=== PATIENT | female | born 1940 | race Caucasian/White ===

== ENCOUNTER 2020-10-14 11:56 | Outpatient (CLI) | payer MEDICARE, SELFPAY ==
--- NOTE | 2020-10-14 12:06 | USCV_ITS ---
Ashleigh Hull Age: 80 Gender: F : 1940 Exam Date: 10/14/2020 13:01 Ordering Phys: Lorena Avila MD Technologist: Milka Sharma Exam Location: [facility] – [place] Indication: Had Covid in Aug and now hypertensive and sob BP: 127 / 70 HR: 73 Rhythm: Sinus Technical Quality: Adequate MEASUREMENTS (Male / Female) Normal Values 2D ECHO LV Diastolic Diameter PLAX 3.6 cm 4.2 - 5.9 / 3.9 - 5.3 cm LV Systolic Diameter PLAX 3.0 cm LV Chamber Size 3.3 cm IVS Diastolic Thickness 1.4 cm 0.6 - 1.0 / 0.6 - 0.9 cm IVS Systolic Thickness 1.6 cm LVPW Diastolic Thickness 1.2 cm 0.6 - 1.0 / 0.6 - 0.9 cm LVPW Systolic Thickness 1.6 cm RV Chamber Size 2.9 cm LVOT Diameter 2.0 cm LV Ejection Fraction 2D Teich 34.0 % LV Ejection Fraction MOD 2C 65.7 % LV Ejection Fraction 2C AL 66.3 % LA Diameter 2.7 cm LA Width 2.9 cm LA Height 2.8 cm RA Width 2.4 cm RA Height 3.6 cm Aorta at Sinotubular Diameter 3.1 cm M-MODE LV Diastolic Diameter MM 3.9 cm 4.2 - 5.9 / 3.9 - 5.3 cm LV Systolic Diameter MM 2.1 cm LV Ejection Fraction MM Teich 77.2 % IVS Diastolic Thickness MM 1.1 cm 0.6 - 1.0 / 0.6 - 0.9 cm IVS Systolic Thickness MM 1.4 cm LVPW Diastolic Thickness MM 1.3 cm 0.6 - 1.0 / 0.6 - 0.9 cm LVPW Systolic Thickness MM 1.9 cm RV Diastolic Diameter MM 1.4 cm Aortic Annulus Diameter 3.3 cm LA Ao Ratio MM 1.1 MV E Point Septal Separation 0.7 cm DOPPLER AV Peak Velocity 184.0 cm/s LVOT Peak Velocity 97.0 cm/s AV Area Cont Eq vti 2.3 cm squared AV Area Cont Eq pk 1.7 cm squared MV Area PHT 5.0 cm squared Mitral E to A Ratio 0.7 MV E' Velocity 44.0 cm/s Mitral E to MV E' Ratio 8.8 Mitral E to LV E' Lateral Ratio 8.2 Mitral E to LV E' Septal Ratio 9.5 TR Peak Velocity 175.7 cm/s TR Peak Gradient 12.4 mmHg TR Mean Velocity 130.6 cm/s TR Mean Gradient 7.5 mmHg TR Velocity Time Integral 42.8 cm TV Peak E Velocity 58.0 cm/s Right Atrial Pressure 3.0 mmHg Pulmonary Artery Systolic Pressu 15.4 mmHg PV Peak Velocity 117.0 cm/s RV Acceleration Time 0.1 s RV Ejection Time 0.3 s RV AcT/ET 0.4 FINDINGS Left Ventricle Normal left ventricular cavity size. Normal left ventricular systolic function. No regional wall motion abnormalities. Left ventricular ejection fraction is estimated at 65 %. Grade I/IV diastolic dysfunction (abnormal relaxation filling pattern), normal to mildly elevated filling pressures. Right Ventricle The right ventricle is normal in size and function. Right Atrium The right atrium is normal in size. Left Atrium The left atrium is normal in size. Mitral Valve Structurally normal mitral valve without significant stenosis or prolapse. There is no mitral regurgitation. Aortic Valve Structurally normal aortic valve without significant sclerosis or stenosis. There is no aortic regurgitation. Tricuspid Valve Structurally normal tricuspid valve without significant stenosis or regurgitation. Pulmonary artery systolic pressure is normal. Pulmonic Valve Structurally normal pulmonic valve without significant stenosis. There is no pulmonic regurgitation. Pericardium Normal pericardium without effusion. Aorta Normal ascending aorta dimension. CONCLUSIONS 1-Normal left ventricular cavity size. Normal left ventricular systolic function. No regional wall motion abnormalities. Left ventricular ejection fraction is estimated at 65 %. Grade I/IV diastolic dysfunction (abnormal relaxation filling pattern), normal to mildly elevated filling pressures. 2-There is no pericardial effusion. 3-No significant valve abnormalities. 4-Pulmonary artery systolic pressure is within normal limits. 5-Right atrial pressure is around 5 mm of mercury. 6-There are no prior echocardiogram studies to compare. Gill Jefferson MD (Electronically Signed) Final Date: 14 October 2020 20:14 S
--- NOTE | 2020-10-14 12:06 | XR_ITS ---
WS: [id number] CHEST 2 VIEWS HISTORY: COPD/COVID19 INFECTION/HYPERTENSION/HYPOXEMIA COMPARISON: 02/24/2017 Lungs: Moderate pulmonary hyperinflation with emphysema. No pneumonia. No pleural effusion. Flattenin g of the diaphragms. Cardiac size: Normal. Mediastinum/Aorta: Mild atherosclerosis aorta. Bones: Moderate increase in thoracic kyphosis. Osteopenia. XR/XR chest 2V* [id number] IMPRESSION: 1. Chronic emphysema with no pneumonia. 2. Mild atherosclerosis aorta.
== END 2020-10-14 11:57 | disposition home or self-care (01) ==
PROVIDERS: PCP Internal Medicine; Visit Provider Internal Medicine
DX: U07.1 COVID-19 (principal); I10 Essential (primary) hypertension; R09.02 Hypoxemia; J44.9 Chronic obstructive pulmonary disease, unspecified; R06.02 Shortness of breath; I70.0 Atherosclerosis of aorta
CPT/HCPCS: 71046; 93306

== ENCOUNTER 2020-10-25 08:31 | Outpatient (CLI) | payer MEDICARE, SELFPAY ==
--- NOTE | 2020-10-25 09:44 | CT_ITS ---
WS: [id number] CT scan of the abdomen with Oral contrast. Additional two-dimensional coronal and sagittal reconstru ction was performed. 10/25/2020 Clinical Data: HERNIA, ABDOMINAL PAIN Comparison: CT abdomen and pelvis, 12/31/2017. DLP: 581.[address] scans at [facility] use at least one of these dose optimization techniques: automat ed exposure control; mA and/or kV adjustment per patient size (includes targeted exams where dose is matched to clinical indication); or iterative reconstruction. Findings: The lower lungs show no nodules, masses or effusions. There is a small hiatal hernia. The gallbladder, spleen, adrenal glands and pancreas are normal. The liver shows 2 cysts in the rig ht and left lobes unchanged. The left kidney is absent. The right kidney shows no cysts, masses, hydronephrosis or calculi. The abdominal aorta shows calcification of the wall and atherosclerotic dilatation with the greatest diameter of 2.5 cm. There is an umbilical hernia containing only fat with the orifice measuring 1.31 cm.. No appendicitis is seen. Oral contrast is in the stomach and small bowel and there is no bowel dilata tion. No abscess, adenopathy, ascites, mass, obstruction or free air is seen. The lumbar vertebral bodies a re normal. CT/CT abdomen wo con [id number] Impression: 1. Absent left kidney. 2. 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 3. Small umbilical hernia containing fat.
[2020-10-25] MEDS: iohexol 300 mg/mL 50 mL Btl PO (10:03)
== END 2020-10-25 08:32 | disposition home or self-care (01) ==
LOC: RADWPI 08:36
PROVIDERS: PCP Internal Medicine; Visit Provider Nurse Practitioner Family
DX: K42.9 Umbilical hernia without obstruction or gangrene (principal); I70.0 Atherosclerosis of aorta; Z90.5 Acquired absence of kidney
CPT/HCPCS: 74150; Q9967

== ENCOUNTER 2020-11-21 05:50 | Day surgery (SDC) | payer MEDICARE, SELFPAY ==
[2020-11-19 13:41] VITALS: BMI 23.8
[2020-11-21 06:15] VITALS: BP 143/107; PULSE 90; RESP 22; TEMP 36.3; O2SAT 93
--- NOTE | 2020-11-21 06:19 | W.PM.OPSUD ---
Surgery/Procedure H&P Update DATE OF PROCEDURE: November 21, 2020 DATE H&P PERFORMED: 10/29/20 H&P UPDATE INFORMATION: I have examined patient prior to procedure and No changes to prior documentation PLANNED PROCEDURE: Operation Date: 11/21/20 07:00 Proposed Procedures p Incisional/Ventral Hernia Repair 50491 K43.9(Not Applicable) - Kiko Mckeon MD
[2020-11-21] MEDS: sodium chloride 0.9% 1,000 ML 30 ML IV (06:35)
[2020-11-21] MEDS: midazolam 1 mg/mL INJ 2 mL 2 MG IVP (06:36)
--- NOTE | 2020-11-21 06:43 | ANES.PREANE2 ---
Pre-Anesthetic Assessment Pre-Anesthetic Assessment: Height/Weight: Height 1.57 m Weight 58.967 kg Temp Pulse Resp BP Pulse Ox 97.4 F L 90 22 H 143/107 93 11/21/20 06:15 11/21/20 06:15 11/21/20 06:15 11/21/20 06:15 11/21/20 06:15 Proposed Procedure: Operation Date: 11/21/20 07:00 Proposed Procedures p Incisional/Ventral Hernia Repair 95897 K43.9(Not Applicable) - Kiko Mckeon MD Was Beta Nolan taken within 24 hours: N/A Last intake: Intake Last Liquid Date 11/20/20 Last Liquid Time 20:00 Last Solid Date 11/20/20 Last Solid Time 17:30 Social: Social History: Tobacco and No alcohol Comment: Long h/o smoking, quit some years ago Exam: Pre-Anes Outpt Exam: alert, oriented x 3 and regular rate & rhythm Additional Exam Findings (including area of procedure): Decreased BS Airway: Submandibular: WNL Cervical ROM: WNL MP: 2 Dentition: False Pulmonary: Pulmonary: COPD Comments: Home O2 CV/HEM: CV/HEM: HTN : : None reported Hepatic: Hepatic: None reported GI: GI: None reported Metabolic: Metabolic: None reported Musc/skel: Musc/skel: None reported Neuropsych: Neuropsych: None reported Anesthetic Plan: ASA status: 3 Anesthesia: MAC Risk of > 500 ml blood loss (7ml/kg in children): No Meds/Allergies Current Medications: Current Medications Generic Name Dose Route Start Last Admin Trade Name Freq PRN Reason Stop Dose Admin Sodium Chloride 1,000 mls @ 30 ml s/hr 11/21/20 06:15 11/21/20 06:35 Sodium Chloride 0.9% IV 11/22/20 06:14 30 mls/hr .Q24H BOB Administration Midazolam HCl 2 mg 11/21/20 06:05 11/21/20 06:36 Midazolam 1 Mg/M l Inj 2 Ml IVP 2 mg Q5M PRN Administration Preop Anxiety PFSH Anesthesia PFSH: Medical History (Updated 11/11/20 @ 09:12 by Kenia Jones MD) COPD (chronic obstructive pulmonary disease) Hiatal hernia HTN (hypertension) Hyperlipidemia Surgical History (Updated 11/11/20 @ 09:08 by Kenia Jones MD) H/O kidney removal Family History Brother Cancer Father Heart attack Mother Lung disease Sister Cancer Social History Smoking and tobacco status: former smoker Quit status (tobacco): has quit using tobacco Year quit tobacco: 1995 -2PPD x 30 Years Second hand smoke exposure: No Smoking risk assessment/counseling performed?: No Alcohol intake: never Desire information about alcohol rehabilitation?: No Counseling given: No Desire information about substance/drug rehabilitation?: No Counseling given: No Lives independently: Yes Household members: none Marital status: / Current occupational status: retired History of recent travel: No Current gender identity: Female Data Anesthesia Cardiac Studies: No Data to Display
--- NOTE | 2020-11-21 07:20 | P.OP_ITS ---
Operative Report Date of procedure: November 21, 2020 Pre-op Diagnosis: Ventral hernia. Post-op diagnosis: same Procedure Done: Repair of ventral hernia. Pathology: none sent Surgeon: Kiko Mckeon Anesthesia: MAC Estimated blood loss (mL): 2 Complications: None. Condition: stable Disposition: same day Procedure: The patient was brought to the operating room and was placed in a supine position on the operating room table. A monitored anesthetic was induced. The abdomen was prepped and draped in a sterile fashion. A combination of 2% lidocaine with 1 to 100,000 parts epinephrine and 0.5% bupiv acaine was used for local anesthesia throughout the procedure. A vertical incision was carried out in the low epigastrium just above the vertical scar above the patient's umbilicus. Cautery was used to divide the subcutaneous tissue down to the fascia and the hernia sac was identified and was freed from the surrounding subcutaneous tissue using cautery. The patient had a hernia defect measuring approximately 1.5 cm in diameter. The sac was reduced and the defect was closed transversely using multiple interrupted sutures of 0 Prolene. The repair was buttressed in between the Prolene sutures with a [id number] suture of 0 Vicryl. The wound was irrigated with saline. The subcutaneous tissue was brought together with a simple suture of 3-0 Vicryl and the skin was approximated using a running subcuticular suture of 3-0 Vicryl. Benzoin and Steri-Strips were placed over the incision and a sterile bandage followed. The patient was taken to the outpatient recovery area in stable co ndition postoperatively.
[2020-11-21 07:25] VITALS: BP 126/74; PULSE 78; RESP 16; TEMP 36.2; O2SAT 98
[2020-11-21 07:40] VITALS: BP 152/74; PULSE 70; RESP 18; TEMP 36.4; O2SAT 2
--- NOTE | 2020-11-21 07:51 | ANE.PACU2 ---
Inpatient post-anesthesia follow up: Airway intact: Yes Vital signs: Temperature 97.1 F Pulse Rate 78 Respiratory Rate 16 Blood Pressure 126/74 Pulse Oximetry 98 Oxygen Delivery Me thod Nasal Cannula Oxygen Flow Rate 3 Fraction of Inspir ed Oxygen Hydration adequate: Yes Nausea and vomiting: No Pain level: 1 Mental status: Baseline
== END 2020-11-21 08:31 | disposition home or self-care (01) ==
PROVIDERS: PCP Internal Medicine; Visit Provider Surgery
PROC: (CPT 49560; principal; 2020-11-21 07:00)
DX: K43.9 Ventral hernia without obstruction or gangrene (principal); Z99.81 Dependence on supplemental oxygen; I10 Essential (primary) hypertension; J43.9 Emphysema, unspecified; E78.00 Pure hypercholesterolemia, unspecified
CPT/HCPCS: 49560; 12345; 96374; J0690; J2250; J2704; J3010; J3490; J7030

== ENCOUNTER 2021-01-15 10:25 | Outpatient (CLI) | payer MEDICARE, SELFPAY ==
--- NOTE | 2021-01-15 10:32 | CT_ITS ---
WS: [id number] CT CHEST WITHOUT INTRAVENOUS CONTRAST HISTORY: Pulmonary nodule TECHNIQUE: Contiguous 5 mm axial imaging performed on the thorax. Coronal and sagittal reformats are submitted. All CT scans at [facility] use at least one of these dose optimization techniq ues: automated exposure control; mA and/or kV adjustment per patient size (includes targeted exams wh ere dose is matched to clinical indication); or iterative reconstruction. CONTRAST: None DLP: 510.81 mGycm COMPARISON: 04/12/2019 Lungs and central airway: Moderate to severe pulmonary hyperexpansion from emphysema. Stable 3 mm ovoid nodule along the RIGHT minor fissure. The remaining previously described micronodul es are not evident. These could be obscured by small amount of motion artifact or due to their small size not visualized from to slice selection. There are no enlarging or suspicious masses. No pneumoni a. Pleura: Normal. No pleural effusion. Heart and pericardium: Normal size heart with no pericardial effusion. Mediastinum and cristofer: No mediastinum or hilar adenopathy. Vessels: Moderate atherosclerosis thoracic aorta. No aneurysm. Plaque extends into the proximal great vessels. Pulmonary artery size is equal to the aorta. Chest wall and lower neck: Bilateral thyroid nodules are unchanged. Upper abdomen: Suprarenal mild dilatation of the aorta. Maximum diameter is 2.6 cm. Low-attenuation m asses within the liver with the largest measuring 2.0 cm on the RIGHT are probably cysts. These are s table. No adrenal mass. Prior LEFT nephrectomy or congenital absent kidney. Osseous structures: Moderate increase in the thoracic kyphosis. No fractures. CT/CT chest wo con [id number] IMPRESSION: 1. No suspicious, enlarging or new pulmonary nodules since 04/12/2019. Majority of the previously described nodules are not evident today and have either reso lved or not imaged due to slice selection. 2. Moderate atherosclerosis thoracic aorta and suprarenal aorta. 3. 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 4. Stable hepatic cysts. 5. Moderately severe chronic emphysema.
== END 2021-01-15 10:26 | disposition home or self-care (01) ==
PROVIDERS: PCP Internal Medicine; Visit Provider Internal Medicine Critical Care Medicine
DX: R91.1 Solitary pulmonary nodule (principal); J43.9 Emphysema, unspecified; K76.89 Other specified diseases of liver; I70.0 Atherosclerosis of aorta
CPT/HCPCS: 71250

== ENCOUNTER 2022-04-07 09:59 | Outpatient (CLI) | payer MEDICARE, SELFPAY ==
--- NOTE | 2022-04-07 10:25 | XRR_ITS ---
PROCEDURE INFORMATION: Exam: XR Lumbosacral Spine Exam date and time: 04/07/2022 10:28 AM Age: 81 years old Clinical indication: Patient HX: Low back pain for 3 -4 weeks, no known trauma; Additional info: Acute back pain TECHNIQUE: Imaging protocol: XR of the lumbosacral spine. Views: 4 or 5 views. Total images: 3 COMPARISON: CT abdomen pelvis w con* [id number] 12/31/2017 3:12 PM FINDINGS: Bones/joints: Diffuse osteopenia noted. Vertebral body heights are maintained. No evidence of spondylolysis nor spondylolisthesis. No acute fracture nor subluxation. No osseous erosion nor periosteal reaction. Soft tissues: Unremarkable. Vasculature: Incidental phleboliths noted. Atherosclerosis is evident. 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 Follow-up imaging in 5 years is recommended. XR/XR lumbar spine min 4V [id number] IMPRESSION: 1. 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 Follow-up imaging in 5 years is recommended. 2. No acute osseous pathology. 3. No acute process identified.
== END 2022-04-07 10:00 | disposition home or self-care (01) ==
PROVIDERS: PCP Internal Medicine; Visit Provider Internal Medicine
DX: I77.811 Abdominal aortic ectasia (principal); M54.9 Dorsalgia, unspecified
CPT/HCPCS: 72110

== ENCOUNTER 2022-09-21 14:11 | Outpatient (CLI) | payer MEDICARE, SELFPAY ==
[2022-09-21 15:48] LABS: Alanine Aminotransferase 32 U/L (0-33); Albumin Level 3.4 g/dL (3.5-5.2); Alkaline Phosphatase 76 U/L (35-105); Anion Gap 14.2 (5-19); Aspartate Amino Transferase 23 U/L (0-32); Blood Urea Nitrogen 15 mg/dL (8-23); Calcium 10.1 mg/dL (8.5-10.5); Carbon Dioxide 32 mmol/L (22-29); Chloride 95 mmol/L (98-107); Glucose 108 mg/dL (65-115); Osmolality Calculated 285 mOsm/kg (285-295); Potassium 4.2 mmol/L (3.5-5.1); Sodium 137 mmol/L (136-145); Total Bilirubin 0.3 mg/dL (0.15-1.2); Total Protein 5.4 g/dL (6.6-8.7)
[2022-09-21 16:13] LABS: Hematocrit 34.1 % (37.0-47.0); Hemoglobin 11.6 g/dL (11.5-15.3); Red Blood Count 3.31 10^6/uL (4.1-5.3); Red Cell Distribution Width 15.4 % (12.1-15.1); White Blood Count 11.5 10^3/uL (4.0-10.0)
[2022-09-21 16:14] LABS: Lymphocytes # 0.5 10^3/uL (0.8-4.8); Lymphocytes % 4.4 %; Mean Platelet Volume 9.1 fL (7.4-10.4); Monocytes # 0.9 10^3/uL (0.2-0.9); Monocytes % 8.2 %; Platelet Count 236 10^3/cmm (130-400); Slide Review Slide Review Perform
[2022-09-21 16:18] LABS: Neutrophils # 9.36 10^3/uL (1.8-7.7)
[2022-09-21 16:19] LABS: Eosinophils % 0.1 %; Neutrophils % 81.2 %
== END 2022-09-21 14:12 | disposition home or self-care (01) ==
PROVIDERS: PCP Internal Medicine; Visit Provider Internal Medicine
DX: I10 Essential (primary) hypertension (principal)
CPT/HCPCS: 80053; 85025

== ENCOUNTER 2022-09-22 14:28 | Outpatient (CLI) | payer MEDICARE, SELFPAY ==
--- NOTE | 2022-09-22 14:36 | CT_ITS ---
WS: [id number] CT ABDOMEN PELVIS TECHNIQUE: Contrast-enhanced CT of the abdomen and pelvis with coronal and sagittal reformatted image s. CLINICAL INFORMATION: ADENOCARCINOMA OF ENDOMETRIUM COMPARISON: CT October 25, 2020 and 2 DLP: 898.[address] scans at [facility] use at least one of these dose optimization techniques: automated e xposure control; mA and/or kV adjustment per patient size (includes targeted exams where dose is matc hed to clinical indication); or iterative reconstruction. FINDINGS: Numerous hepatic cysts are unchanged. Largest RIGHT hepatic lobe measuring 2.2 cm. Normal splenic enh ancement. Normal GE junction. Lung bases are well aerated. Normal pancreatic parenchymal enhancement. Normal portal vein and splenic vein. Adrenal glands are normal. LEFT nephrectomy. Normal RIGHT renal parenchymal enhancement. RIGHT double-J ureteral stents. Moderate aortic calcification. Celiac and SMA are patent. Moderate stenosis at the SMA origin. Aneury smal infrarenal abdominal aorta measuring 2.79 x 2.7 cm AP by transverse. Diffuse body wall anasarca. RIGHT ventral abdominal wall hernia with herniation of transverse colon. Wide mouth hernia. No strangulation. Hernia mouth measures 3.7 x 4.3 CM. Small amount of adjacent flu id.No abdominal or pelvic lymphadenopathy. Small amount of free fluid in the pelvis. Nonspecific smal l peripherally enhancing fluid collection along the LEFT iliac crest anteriorly measuring 2.4 x3.2 CM . Associated diffuse body wall anasarca. Fat-containing umbilical hernia with a small amount of fluid . Sclerotic lesions L5 and L3 vertebral bodies are new compared to 2020. These are nonspecific and susp icious for metastatic disease. Additional partially visualized tiny sclerotic lesion T10. Recommend f urther evaluation with bone scan and/or PET CT. CT/CT abdomen pelvis w con* [id number] IMPRESSION: 1. Sclerotic lesions in the L3 and L5 vertebral bodies nonspecific but metasta tic disease not excluded. Largest at L3 eccentric to the RIGHT measuring 17 mm. Recommend further evaluation with bone scan and/or PET CT. 2. Prior hysterectomy. Small amount of free fluid in the pelvis. 3. Prior LEFT nephrectomy. 4. RIGHT double-J ureteral stent. No hydronephrosis. 5. [place] RIGHT ventral abdominal wall hernia measuring 3.7 x 4.3 cm is new from previous. Herniated loop of transverse colon with a small amount of adjac ent fluid. No evidence of strangulation. 6. Diffuse body wall anasarca.Nonspecific small peripherally enhancing fluid c ollection along the LEFT iliac crest anteriorly measuring 2.4 x3.2 CM. 7. Stable hepatic cysts. 8. Small aneurysmal infrarenal abdominal aorta measuring 2.7 x 2.7 cm. 9. No abdominal or pelvic lymphadenopathy. 10. Small amount of free fluid in the pelvis.
[2022-09-22] MEDS: iohexol 350 mg/mL 100 mL Btl PO (14:59)
[2022-09-22] MEDS: iohexol 350 mg/mL 100 mL Btl IV (16:30)
== END 2022-09-22 14:29 | disposition home or self-care (01) ==
PROVIDERS: PCP Internal Medicine; Visit Provider Internal Medicine
DX: C54.1 Malignant neoplasm of endometrium (principal); M89.9 Disorder of bone, unspecified; R60.1 Generalized edema
CPT/HCPCS: 74177